=== PATIENT | female | born 1965 | race Caucasian/White ===

== ENCOUNTER 2022-05-21 07:51 | Day surgery (SDC) | payer MEDICAID ==
[~2022-05-21] VITALS: Ht 149.9 cm; Wt 79.4 kg
[2022-05-21] MEDS ORDERED: MEPERIDINE 100 MG INJ. 100 MG/ML VIAL ONE (08:22)
[2022-05-21] MEDS: MIDAZOLAM HCL 5 MG/5 ML VIAL ONE ×3 (11:27→11:41)
[2022-05-21 15:24] VITALS: BP_SYST 114
== END 2022-05-21 13:00 | disposition home or self-care (01) ==
LOC: SDS 07:51 → SMU 07:53 → SDS 13:00
PROVIDERS: ATTEND Internal Medicine Gastroenterology
DX: Z12.11 Encounter for screening for malignant neoplasm of colon (principal); K29.50 Unspecified chronic gastritis without bleeding; D12.5 Benign neoplasm of sigmoid colon; K21.9 Gastro-esophageal reflux disease without esophagitis; R19.5 Other fecal abnormalities; K64.8 Other hemorrhoids; K44.9 Diaphragmatic hernia without obstruction or gangrene; E11.9 Type 2 diabetes mellitus without complications; K59.00 Constipation, unspecified; Z79.899 Other long term (current) drug therapy; Z20.822 Contact with and (suspected) exposure to COVID-19
CPT/HCPCS: 36415 ×2; 45385; 43239; 87426; 87081; 82962; 88305; 88312; 88313; U0003; G0378; J2250; J2175